=== PATIENT | male | born 1980 | race Two or more races ===

== ENCOUNTER → 2020-01-13 | Emergency (ER) | payer BC ==
[~2020-01-13] VITALS: Ht 172.7 cm; Wt 70.3 kg
[~2020-01-13] MED LIST: [UNRECOGNIZED DRUG - OTHER]
== END | disposition left against medical advice (07) ==
LOC: ER 14:15
DX: Z53.20 Procedure and treatment not carried out because of patient's decision for unspecified reasons (principal)

== ENCOUNTER 2020-02-18 16:32 | Emergency (ER) | payer BC ==
[~2020-02-18] VITALS: Ht 172.7 cm; Wt 65.8 kg
== END 2020-02-18 19:12 | disposition home or self-care (01) ==
LOC: ER 16:32
DX: L03.115 Cellulitis of right lower limb (principal)